=== PATIENT | female | born 1950 | race Hispanic/Latino ===

== ENCOUNTER 2016-08-09 10:01 | Emergency (ER) | payer BC, OTHER ==
[2016-08-09 10:29] VITALS: BP 152/86; PULSE 86; TEMP 97.9
[2016-08-09 10:30] VITALS: BMI 36.6
[2016-08-09 10:31] VITALS: RESP 18; O2SAT 97
--- NOTE | 2016-08-09 11:42 | ED PDOC ---
Arrival/HPI - General Chief Complaint: Eye Problem Time Seen by Provider: 08/09/16 10:38 Historian: Patient - History of Present Illness Narrative History of Present Illness (Text): 08/09/16 12:17 Patient reports sudden onset of sharp pain to b/l eyes, L>R, which started at 3 am, associated with blurry vision. States that at 1 am she removed make up from around her eyes with a make up remover pad, adds that none of the chemicals got into her eyes. Reports having no history of prior eye conditions, but does wear glasses, last eye evaluation was 1 month ago, which was all normal as per patient. Otherwise: (+) visual changes, (+) Fb sensation to the L upper eyelid, (-) other injury, (-) contact lens, (-) headache, (-) fever, (- ) trauma, (-) redness, (-) swelling, (-) itching, (-) discharge, (-) other complaints. Account Executive Trainee : Leodan Nguyễn Past Medical History - Provider Review Nursing Documentation Reviewed: Yes - Infectious Disease Hx of Infectious Diseases: None - Reproductive Menopause: Yes - Psychiatric Hx Substance Use: No - Surgical History Hx Cholecystectomy: Yes Hx Tonsillectomy: Yes - Anesthesia Hx Anesthesia: Yes Hx Anesthesia Reactions: No Hx Malignant Hyperthermia: No Family/Social History - Physician Review Nursing Documentation Reviewed: Yes Family/Social History: No Known Family HX Smoking Status: Never Smoked Hx Alcohol Use: No Hx Substance Use: No Allergies/Home Meds Allergies/Adverse Reactions: Allergies codeine Adverse Reaction (Verified 08/09/16 10:30) DIZZINESS Home Medications: Home Meds Medication Instructions Recorded Confirmed No Known Home Med 08/09/16 08/09/16 Review of Systems - Review of Systems Constitutional: Normal. absent: Fatigue, Weight Change, Fevers Eyes: Normal, Vision Changes, Eye Pain ENT: Normal. absent: Hearing Changes, Tinnitus Respiratory: Normal. absent: SOB, Cough, Sputum Skin: Normal. absent: Rash, Skin Lesions Neurological: Normal. absent: Headache, Dizziness Physical Exam - Physical Exam Narrative Physical Exam (Text): 08/09/16 12:13 GENERAL APPEARANCE: Patient is awake, alert, oriented x 3, in moderate painful distress. HEENT: (-) facial swelling and erythema, (-) facial blisters. VISUAL ACUITIES: Left eye: 20/200 ; Right eye: 20/200 with correction. IOP : L eye 31 ; R eye 20 LIDS & LASHES: Normal. PUPILS: Pupils equal and reactive. EOM's: Intact. LID EVERSION: (-) edema, (-) erythema, (-) discharge, (-) foreign body. CONJUNCTIVAE: (-) injection. CORNEA: (-) cloudy, (-) foreign body noted, (-) infiltrate. ANTERIOR CHAMBER: (-) foreign body, (-) tear in iris, (-) hyphema. FLUORESCEIN: (-) uptake Vital Signs Temp Pulse Resp BP Pulse Ox 08/09/16 10:30 97.9 F 86 18 152/86 H 97 08/09/16 10:23 97.9 F 86 19 152/86 H 98 Medical Decision Making ED Course and Treatment: 08/09/16 11:39 66 yo F c/o sudden onset of b/l eye pain. PE otherwise normal, except of elevated eye pressure of 31 to the L eye. Case d/w Dr. Melgar, associate of Dr. Archibald, spice cleaner instructor correspondence [employer], recommends that the patient be sent to her office stat for further evaluation. Patient and family member given strict instructions to go to the doctor's office immediately after being discharge without fail. Patient and family understand instructions and intend to follow up for further evaluation of current symptoms. - PA / LACE MENDER / Resident Statement MD/DO has reviewed & agrees with the documentation as recorded. Disposition/Present on Arrival - Present on Arrival Any Indicators Present on Arrival: No History of DVT/PE: No History of Uncontrolled Diabetes: No Urinary Catheter: No History of Decub. Ulcer: No History Surgical Site Infection Following: None - Disposition Have Diagnosis and Disposition been Completed?: Yes Diagnosis: Acute eye pain Disposition: OTHER INSTITUTION Disposition Time: 11:41 Patient Plan: Transfer To Condition: STABLE Discharge Instructions (ExitCare): Eye Pain (ED) Print Language: YI Referrals: Iman Null [Primary Care Provider] - Follow up with primary Dave Archibald [Staff Provider] - Follow up with primary
== END 2016-08-09 11:49 | disposition designated cancer center or children's hospital (05) ==
LOC: ED 10:01
DX: H57.13 Ocular pain, bilateral (principal)